=== PATIENT | male | born 1960 | race Caucasian/White ===

== ENCOUNTER 2023-06-18 07:06 | Outpatient (CLI) | payer BC, SELFPAY ==
--- NOTE | 2023-06-18 08:23 | W.ANESCHARGE ---
Anesthesia Charges Start Date/Time Anesthesia Start Date: 06/18/23 Anesthesia Start Time: 08:00 Stop Date/Time Anesthesia Stop Date: 06/18/23 Anesthesia Stop Time: 08:21
--- NOTE | 2023-06-18 08:30 | W.ANESCHARGE ---
Anesthesia Charges Start Date/Time Anesthesia Start Date: 06/18/23 Anesthesia Start Time: 08:00 Stop Date/Time Anesthesia Stop Date: 06/18/23 Anesthesia Stop Time: 08:21
== END 2023-06-18 07:07 | disposition home or self-care (01) ==
LOC: OP CLINIC 07:06
PROVIDERS: PCP Family Medicine; Visit Provider Internal Medicine
DX: Z12.11 Encounter for screening for malignant neoplasm of colon (principal)
CPT/HCPCS: 00811; 00812; 45378; J2704